=== PATIENT | female | born 1990 | race Caucasian/White ===

== ENCOUNTER → 2019-01-31 | Outpatient (CLI) | payer OTHER ==
--- NOTE | 2019-02-01 06:07 | XR ---
EXAMINATION TYPE: XR chest 2V DATE OF EXAM: 01/31/2019 COMPARISON: None HISTORY: 28-year-old female with cough TECHNIQUE: Frontal and lateral views FINDINGS: The cardiomediastinal silhouette, aorta, and pulmonary vasculature are within normal limits. Lungs an d pleural spaces are clear. IMPRESSION: No acute cardiopulmonary process.
== END | disposition home or self-care (01) ==
LOC: RADXRMAIN 16:41
PROVIDERS: ATTEND Family Medicine
DX: R05 Cough (principal)
CPT/HCPCS: 71046

== ENCOUNTER → 2019-07-12 | Outpatient (CLI) | payer OTHER ==
--- NOTE | 2019-07-12 13:09 | US ---
EXAMINATION TYPE: US pelvic complete DATE OF EXAM: 07/12/2019 COMPARISON: NONE CLINICAL HISTORY: R10.11 RIGHT LOWER QUADRANT PAIN. RLQ pain. Patient did not want the transvaginal ultrasound. TECHNIQUE: Transabdominal (TA). Transabdominal sonographic images of the pelvis were acquired. Date of LMP: 06/18/2019, EXAM MEASUREMENTS: Uterus: 8.6 x 4.8 x 3.6 cm Endometrial Stripe: 0.2 cm Right Ovary: 2.7 x 1.4 x 1.2 cm Left Ovary: 5.9 x 4.3 x 3.6 cm 1. Uterus: Anteverted wnl 2. Endometrium: wnl 3. Right Ovary: wnl 4. Left Ovary: simple cystic appearing lesion visualized = 5.1 x 3.8 x 3.4 cm Spectral, color and waveform doppler imaging shows good arterial and venous flow within the left ov felix; there is no evidence for ovarian torsion. 5. Bilateral Adnexa: neg 6. Posterior cul-de-sac: no free fluid IMPRESSION: There is a simple appearing left 5.1 cm ovarian cyst however the patient declined transva ginal imaging for further delineation. The size of this cyst does increased risk for torsion however no sonographic evidence of left ovarian torsion is seen at this time. Follow-up in 3 menstrual cycles is recommended to ensure resolution.
--- NOTE | 2019-07-12 13:10 | US ---
EXAMINATION TYPE: US abdomen complete DATE OF EXAM: 07/12/2019 COMPARISON: NONE CLINICAL HISTORY: R10.11 right lower quadrant pain. No surgeries. NPO. Generalized pain. EXAM MEASUREMENTS: Liver Length: 14.5 cm Gallbladder Wall: 0.2 cm CBD: 0.4 cm Spleen: 10.0 cm Right Kidney: 10.8 x 5.6 x 3.9 cm Left Kidney: 11.1 x 5.1 x 5.7 cm Pancreas: wnl Liver: wnl Gallbladder: wnl Evidence for sonographic Scott's sign: neg CBD: wnl Spleen: wnl Right Kidney: wnl Left Kidney: wnl Upper IVC: wnl Abd Aorta: No AAA visualized The liver is homogenous. The intrahepatic portion of the IVC and proximal abdominal aorta are within normal limits. There is no evidence of cholelithiasis. Common bile duct is unremarkable. The visu alized portions of the pancreas are homogenous. The spleen is unremarkable. Kidneys are symmetric a nd free of hydronephrosis. No renal lesions are seen. IMPRESSION: Unremarkable abdominal ultrasound. No sonographic evidence of cholelithiasis nor acute ch olecystitis.
== END | disposition home or self-care (01) ==
LOC: RADUSWWP 10:42
PROVIDERS: ATTEND Family Medicine
DX: N83.292 Other ovarian cyst, left side (principal); R10.31 Right lower quadrant pain
CPT/HCPCS: 76700; 76856

== ENCOUNTER → 2021-01-12 | Outpatient (CLI) | payer OTHER ==
--- NOTE | 2021-01-12 13:21 | XR ---
EXAMINATION TYPE: XR shoulder complete LT DATE OF EXAM: 01/12/2021 COMPARISON: NONE HISTORY: Pain TECHNIQUE: Shoulder examined in 3 views FINDINGS: The humeral head articulates with the glenoid. The acromio-clavicular junction is normal. No acute fractures or dislocations are evident. A follow up study can be performed 7-10 days from acute trauma for continued pain. IMPRESSION: 1. Normal three-view left Shoulder
--- NOTE | 2021-01-12 15:58 | US ---
EXAMINATION TYPE: US abdomen limited DATE OF EXAM: 01/12/2021 COMPARISON: NONE CLINICAL HISTORY: 30-year-old female R10.11 right upper quadrant pain. TECHNIQUE: Multiple sonographic images of the right upper quadrant are obtained. FINDINGS: EXAM MEASUREMENTS: Liver Length: 16.3 cm Gallbladder Wall: .3 cm CBD: .4 cm Right Kidney: 11.5 x 3.9 x 5.3 cm Pancreas: wnl Liver: wnl Gallbladder: wnl Evidence for sonographic Scott's sign: No CBD: wnl Right Kidney: No hydronephrosis. IMPRESSION: Unremarkable sonographic examination of the right upper quadrant.
== END | disposition home or self-care (01) ==
LOC: RADUSWWP 09:27
PROVIDERS: ATTEND Family Medicine
DX: R10.11 Right upper quadrant pain (principal); M75.42 Impingement syndrome of left shoulder
CPT/HCPCS: 76705

== ENCOUNTER 2021-09-29 08:18 | Emergency (ER) | payer OTHER ==
[2021-09-29 08:22] VITALS: BP 110/72; PULSE 85; RESP 20; TEMP 98
[2021-09-29] MEDS ORDERED: methylPREDNISolone SOD SUCCI 125 MG/2 ML VIAL IM ONE (09:09)
[2021-09-29] MEDS ORDERED: KETOROLAC 15 MG/ML 1 ML VIAL IM STA (09:09)
[2021-09-29] MEDS ORDERED: ACET/COD 300 MG/30 MG STARTER PACK 6 TAB BTL PO STA (09:11)
--- NOTE | 2021-09-29 09:12 | ED ---
General Adult HPI - General Chief complaint: Back Pain/Injury Stated complaint: spine/back pain Time Seen by Provider: 09/29/21 08:27 Source: patient, RN notes reviewed Mode of arrival: wheelchair Limitations: no limitations - History of Present Illness Initial comments: 30-year-old female with a past medical history of back pain presents to the emergency department for acute back pain. Patient states for 15 years she has had back pain on and off. States that it is usually at of 4 but now is at a 9. Patient states that the pain radiates down the right leg. Patient has a history of degenerative disc disease and slipped disks. She denies any bladder or bowel changes, saddle anesthesia, or weakness in the legs. Denies fevers. States that movement worsens the pain.denies any chance of Patient has no other complaints at this time including shortness of breath, chest pain, abdominal pain, nausea or vomiting, headache, or visual changes. - Related Data Previous Rx's Medication Instructions Recorded predniSONE 50 mg PO DAILY #4 tablet 09/29/21 Allergies Allergy/AdvReac Type Severity Reaction Status Date / Time Penicillins Allergy Rash/Hives Verified 09/29/21 08:22 Review of Systems ROS Statement: Those systems with pertinent positive or pertinent negative responses have been documented in the HPI. ROS Other: All systems not noted in ROS Statement are negative. Past Medical History Additional Past Medical History / Comment(s): Back pain History of Any Multi-Drug Resistant Organisms: None Reported Past Surgical History: Section Past Psychological History: No Psychological Hx Reported Smoking Status: Never smoker Past Alcohol Use History: Occasional Past Drug Use History: Marijuana General Exam Limitations: no limitations General appearance: alert, in no apparent distress Head exam: Present: atraumatic, normocephalic, normal inspection Eye exam: Present: normal appearance, PERRL, EOMI. Absent: scleral icterus, conjunctival injection, periorbital swelling ENT exam: Present: normal exam, mucous membranes moist Neck exam: Present: normal inspection, full ROM. Absent: tenderness, meningismus, lymphadenopathy Respiratory exam: Present: normal lung sounds bilaterally. Absent: respiratory distress, wheezes, rales, rhonchi, stridor Cardiovascular Exam: Present: regular rate, normal rhythm, normal heart sounds. Absent: systolic murmur, diastolic murmur, rubs, gallop, clicks GI/Abdominal exam: Present: soft, normal bowel sounds. Absent: distended, tenderness, guarding, rebound, rigid Extremities exam: Present: normal capillary refill (Capillary refill less than 2 seconds bilateral lower extremities.), other (strength 5 out of 5 bilateral lower extremities) Back exam: Present: other (She is able to ambulate and stand. Pain with flexion of the lumbar spine.). Absent: full ROM Course Vital Signs 09/29/21 08:19 Temperature 98 F Pulse Rate 85 Respiratory 20 Rate Blood Pressure 110/72 O2 Sat by Pulse 99 Oximetry Medical Decision Making - Medical Decision Making No red flag symptoms. This is acute on chronic back pain. We will treat patient symptomatically and refer her to orthopedics for an MRI. She will also be put on a steroid burst. She will return here for any worsening symptoms. Disposition Clinical Impression: Mechanical back pain, Lumbar radiculopathy Disposition: HOME SELF-CARE Condition: Good Instructions (If sedation given, give patient instructions): Acute Low Back Pain (ED) Additional Instructions: take steroid as directed. Do not take Motrin on the days to take steroid. Take Tylenol 3 instead. Follow-up with orthopedics. Return to the emergency room for any worsening symptoms. Prescriptions: predniSONE 50 mg PO DAILY #4 tablet Is patient prescribed a controlled substance at d/c from ED?: No Referrals: Ana Cristina Mims MD [Primary Care Provider] - 1-2 days Reji Cook DO [Doctor of Osteopathic Medicine] - 1-2 days Time of Disposition: 09:11
== END 2021-09-29 09:38 | disposition home or self-care (01) ==
LOC: EC 08:18
DX: M54.16 Radiculopathy, lumbar region (principal); F12.90 Cannabis use, unspecified, uncomplicated; Z88.0 Allergy status to penicillin
CPT/HCPCS: 99283; 96372 ×2; J2930; J1885

== ENCOUNTER 2021-10-05 18:57 | Emergency (ER) | payer OTHER ==
[2021-10-05 20:34] VITALS: TEMP 98.7
[2021-10-05] MEDS ORDERED: MECLIZINE 12.5 MG TAB PO STA (23:48)
[2021-10-05] MEDS ORDERED: SODIUM CHLORIDE 0.9% 1,000 ML IV STA (23:48)
[2021-10-06 00:29] LABS: Basophils # (A) 0.1 k/uL (0-0.2); Basophils % (A) 1 %; Eosinophils # (A) 0.4 k/uL (0-0.7); Eosinophils % (A) 4 %; HCT 39.8 % (34.0-46.0); HGB 13.4 gm/dL (11.4-16.0); Lymphocytes # (A) 4.3 k/uL (1.0-4.8); Lymphocytes % (A) 39 %; MCH 29.5 pg (25.0-35.0); MCHC 33.7 g/dL (31.0-37.0); MCV 87.6 fL (80.0-100.0); Mean Platelet Volume 7.9; Monocytes # (A) 0.5 k/uL (0-1.0); Monocytes % (A) 4 %; Neutrophils # (A) 5.7 k/uL (1.3-7.7); Neutrophils % (A) 51 %; Platelet Count 346 k/uL (150-450); RBC 4.55 m/uL (3.80-5.40); RDW 11.9 % (11.5-15.5); WBC 11.2 k/uL (3.8-10.6)
[2021-10-06 00:31] LABS: Appearance,Urine Clear (Clear); Bilirubin,Urine Negative (Negative); Blood,Urine Negative (Negative); Color,Urine Light Yellow; Glucose,Urine (UA) Negative (Negative); Ketones,Urine Negative (Negative); Leukocyte Esterase,Urine Negative (Negative); Nitrite,Urine Negative (Negative); PH, Urine 5.5 (5.0-8.0); Protein,Urine Negative (Negative); Specific Gravity,Urine 1.017 (1.001-1.035); Urobilinogen,Urine <2.0 mg/dL (<2.0)
[2021-10-06 00:41] LABS: ALT 11 U/L (4-34); AST 16 U/L (14-36); African American GFR (CKD) >90 (>60 ml/min/1.73 sqM); Albumin 3.7 g/dL (3.5-5.0); Alkaline Phosphatase 63 U/L (38-126); Anion Gap 8 mmol/L; Blood Urea Nitrogen 17 mg/dL (7-17); Calcium 9.6 mg/dL (8.4-10.2); Carbon Dioxide 28 mmol/L (22-30); Chloride 99 mmol/L (98-107); Glucose 91 mg/dL (74-99); Non-African American GFR(CKD) >90 (>60 ml/min/1.73 sqM); Potassium 3.9 mmol/L (3.5-5.1); Sodium 135 mmol/L (137-145); Total Bilirubin 0.7 mg/dL (0.2-1.3); Total Protein 6.8 g/dL (6.3-8.2)
--- NOTE | 2021-10-06 00:45 | XR ---
EXAMINATION TYPE: XR chest 2V DATE OF EXAM: 10/05/2021 COMPARISON: 01/31/2019 HISTORY: Dizziness TECHNIQUE: FINDINGS: Heart and mediastinum are normal. Lungs are clear. Diaphragm is normal. Bony thorax appears normal. IMPRESSION: Normal chest. No change.
--- NOTE | 2021-10-06 01:39 | ED ---
General Adult HPI - General Chief complaint: Recheck/Abnormal Lab/Rx Stated complaint: Swollen Lymph Nodes/Dizziness Time Seen by Provider: 10/05/21 23:25 Source: patient, family, RN notes reviewed Mode of arrival: ambulatory Limitations: no limitations - History of Present Illness Initial comments: 30-year-old female with a past medical history of back pain presents to the emergency room for dizziness. Patient states she just has not felt well over the past couple days. States she has been more fatigued. Patient states she has been lightheaded and dizzy. States sometimes the dizziness makes her feel drunk. Patient also has a lump in her left armpit that is concerning to her. Patient did have some severe back pain however that has improved significantly. This was a week ago. She has not had fevers. She states her taste is also different. States that water taste different and pop just taste carbonated. States this happened the last time she had Covid. States all these symptoms happen the last time she had Covid.Patient has no other complaints at this time including shortness of breath, chest pain, abdominal pain, nausea or vomiting, headache, or visual changes. - Related Data Previous Rx's Medication Instructions Recorded predniSONE 50 mg PO DAILY #4 tablet 09/29/21 Meclizine [Antivert] 25 mg PO TID #20 tab 10/06/21 Ondansetron [Zofran ODT] 4 mg PO Q8HR PRN #15 tab 10/06/21 Sulfamethox-Tmp 800-160Mg [Bactrim 1 tab PO Q12HR #14 tab 10/06/21 DS 800-160 mg] Allergies Allergy/AdvReac Type Severity Reaction Status Date / Time codeine Allergy Nausea & Verified 10/05/21 20:34 Vomiting Penicillins Allergy Rash/Hives Verified 09/29/21 08:22 Review of Systems ROS Statement: Those systems with pertinent positive or pertinent negative responses have been documented in the HPI. ROS Other: All systems not noted in ROS Statement are negative. Past Medical History Additional Past Medical History / Comment(s): Back pain History of Any Multi-Drug Resistant Organisms: None Reported Past Surgical History: Section Past Psychological History: No Psychological Hx Reported Smoking Status: Never smoker Past Alcohol Use History: Occasional Past Drug Use History: Marijuana General Exam Limitations: no limitations General appearance: alert, in no apparent distress Head exam: Present: atraumatic Eye exam: Present: normal appearance, PERRL, EOMI. Absent: scleral icterus, conjunctival injection ENT exam: Present: normal exam, mucous membranes moist Neck exam: Present: normal inspection, full ROM. Absent: tenderness Respiratory exam: Present: normal lung sounds bilaterally. Absent: respiratory distress, wheezes Cardiovascular Exam: Present: regular rate, normal rhythm, normal heart sounds GI/Abdominal exam: Present: soft, normal bowel sounds. Absent: distended, tenderness Extremities exam: Present: other (erythematous nodule in L axilla, indurated.) Neurological exam: Present: alert, oriented X3, normal gait Course Vital Signs 10/05/21 10/05/21 20:29 23:00 Temperature 98.7 F Pulse Rate 83 78 Respiratory 22 16 Rate Blood Pressure 114/72 118/77 O2 Sat by Pulse 100 97 Oximetry Medical Decision Making - Medical Decision Making Vitals are stable. Patient is well appearing. Physical exam did reveal an erythematous nodule in the left axilla. It is indurated, not fluctuant. Cannot be drained at this time. CBC shows mild cytosis. Patient just finished a course of steroids and this is likely reactive. CMP unremarkable. Urinalysis is negative. Coronavirus negative. X-ray shows a normal chest, no change. Patient was given fluids and Antivert. She does not have any ataxia. She only has mild symptoms at this time. I'll as an antibiotic for possible developing abscess in the left axilla. She will do warm compresses. She will follow up with primary care. Will return for any worsening symptoms. - Lab Data Result diagrams: 10/06/21 00:13 10/06/21 00:13 Lab Results 10/05/21 10/06/21 10/06/21 Range/Units 20:35 00:13 00:13 WBC 11.2 H (3.8-10.6) k/uL RBC 4.55 (3.80-5.40) m/uL Hgb 13.4 (11.4-16.0) gm/dL Hct 39.8 (34.0-46.0) % MCV 87.6 (80.0-100.0) fL MCH 29.5 (25.0-35.0) pg MCHC 33.7 (31.0-37.0) g/dL RDW 11.9 (11.5-15.5) % Plt Count 346 (150-450) k/uL MPV 7.9 Neutrophils % 51 % Lymphocytes % 39 % Monocytes % 4 % Eosinophils % 4 % Basophils % 1 % Neutrophils # 5.7 (1.3-7.7) k/uL Lymphocytes # 4.3 (1.0-4.8) k/uL Monocytes # 0.5 (0-1.0) k/uL Eosinophils # 0.4 (0-0.7) k/uL Basophils # 0.1 (0-0.2) k/uL Sodium (137-145) mmol/L Potassium (3.5-5.1) mmol/L Chloride (98-107) mmol/L Carbon Dioxide (22-30) mmol/L Anion Gap mmol/L BUN (7-17) mg/dL Creatinine (0.52-1.04) mg/dL Est GFR (CKD-EPI)AfAm (>60 ml/min/1.73 sqM) Est GFR (CKD-EPI)NonAf (>60 ml/min/1.73 sqM) Glucose (74-99) mg/dL Calcium (8.4-10.2) mg/dL Total Bilirubin (0.2-1.3) mg/dL AST (14-36) U/L ALT (4-34) U/L Alkaline Phosphatase (38-126) U/L Total Protein (6.3-8.2) g/dL Albumin (3.5-5.0) g/dL Urine Color Light Yellow Urine Appearance Clear (Clear) Urine pH 5.5 (5.0-8.0) Ur Specific [place] 1.017 (1.001-1.035) Urine Protein Negative (Negative) Urine Glucose (UA) Negative (Negative) Urine Ketones Negative (Negative) Urine Blood Negative (Negative) Urine Nitrite Negative (Negative) Urine Bilirubin Negative (Negative) Urine Urobilinogen <2.0 (<2.0) mg/dL Ur Leukocyte Esterase Negative (Negative) Urine HCG, Qual (Not Detectd) Coronavirus (PCR) Not Detected (Not Detectd) 10/06/21 10/06/21 Range/Units 00:13 00:13 WBC (3.8-10.6) k/uL RBC (3.80-5.40) m/uL Hgb (11.4-16.0) gm/dL Hct (34.0-46.0) % MCV (80.0-100.0) fL MCH (25.0-35.0) pg MCHC (31.0-37.0) g/dL RDW (11.5-15.5) % Plt Count (150-450) k/uL MPV Neutrophils % % Lymphocytes % % Monocytes % % Eosinophils % % Basophils % % Neutrophils # (1.3-7.7) k/uL Lymphocytes # (1.0-4.8) k/uL Monocytes # (0-1.0) k/uL Eosinophils # (0-0.7) k/uL Basophils # (0-0.2) k/uL Sodium 135 L (137-145) mmol/L Potassium 3.9 (3.5-5.1) mmol/L Chloride 99 (98-107) mmol/L Carbon Dioxide 28 (22-30) mmol/L Anion Gap 8 mmol/L BUN 17 (7-17) mg/dL Creatinine 0.61 (0.52-1.04) mg/dL Est GFR (CKD-EPI)AfAm >90 (>60 ml/min/1.73 sqM) Est GFR (CKD-EPI)NonAf >90 (>60 ml/min/1.73 sqM) Glucose 91 (74-99) mg/dL Calcium 9.6 (8.4-10.2) mg/dL Total Bilirubin 0.7 (0.2-1.3) mg/dL AST 16 (14-36) U/L ALT 11 (4-34) U/L Alkaline Phosphatase 63 (38-126) U/L Total Protein 6.8 (6.3-8.2) g/dL Albumin 3.7 (3.5-5.0) g/dL Urine Color Urine Appearance (Clear) Urine pH (5.0-8.0) Ur Specific [place] (1.001-1.035) Urine Protein (Negative) Urine Glucose (UA) (Negative) Urine Ketones (Negative) Urine Blood (Negative) Urine Nitrite (Negative) Urine Bilirubin (Negative) Urine Urobilinogen (<2.0) mg/dL Ur Leukocyte Esterase (Negative) Urine HCG, Qual Not Detected (Not Detectd) Coronavirus (PCR) (Not Detectd) Disposition Clinical Impression: Dizziness, Abscess Disposition: HOME SELF-CARE Condition: Good Instructions (If sedation given, give patient instructions): Abscess (ED) Additional Instructions: Take medications as directed. Follow-up with your doctor. Return to the emergency room for any worsening symptoms. Prescriptions: Meclizine [Antivert] 25 mg PO TID #20 tab Sulfamethox-Tmp 800-160Mg [Bactrim DS 800-160 mg] 1 tab PO Q12HR #14 tab Ondansetron [Zofran ODT] 4 mg PO Q8HR PRN #15 tab PRN Reason: Nausea Is patient prescribed a controlled substance at d/c from ED?: No Referrals: Isauro Trotter MD [REFERRING] - 1-2 days Time of Disposition: 01:38
[2021-10-06 01:45] VITALS: BP 121/55; PULSE 77; RESP 18
== END 2021-10-06 01:45 | disposition home or self-care (01) ==
LOC: EC 18:57
DX: R42 Dizziness and giddiness (principal); L02.412 Cutaneous abscess of left axilla; F12.90 Cannabis use, unspecified, uncomplicated; Z20.822 Contact with and (suspected) exposure to COVID-19; Z88.0 Allergy status to penicillin; Z88.5 Allergy status to narcotic agent
CPT/HCPCS: 36415; 71046; 80053; 81003; 81025; 85025; 87635; 99284

== ENCOUNTER → 2022-03-23 | Outpatient (CLI) | payer OTHER ==
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
== END | disposition home or self-care (01) ==
LOC: RADXRWHC 09:09
PROVIDERS: ATTEND Nurse Practitioner Family
DX: M51.36 Other intervertebral disc degeneration, lumbar region (principal)
CPT/HCPCS: 72100

== ENCOUNTER 2022-07-12 11:21 | Emergency (ER) | payer OTHER ==
[2022-07-12] MEDS ORDERED: SODIUM CHLORIDE 0.9% 1,000 ML IV STA (11:53)
[2022-07-12 12:10] LABS: Basophils # (A) 0.1 k/uL (0-0.2); Basophils % (A) 0 %; Eosinophils # (A) 0.4 k/uL (0-0.7); Eosinophils % (A) 3 %; HCT 42.3 % (34.0-46.0); HGB 14.1 gm/dL (11.4-16.0); Lymphocytes # (A) 3.4 k/uL (1.0-4.8); Lymphocytes % (A) 25 %; MCH 29.3 pg (25.0-35.0); MCHC 33.4 g/dL (31.0-37.0); MCV 87.6 fL (80.0-100.0); Monocytes # (A) 0.5 k/uL (0-1.0); Monocytes % (A) 4 %; Neutrophils % (A) 67 %; Platelet Count 338 k/uL (150-450); RBC 4.82 m/uL (3.80-5.40); RDW 12.6 % (11.5-15.5); WBC 13.6 k/uL (3.8-10.6)
[2022-07-12 12:23] VITALS: RESP 18
[2022-07-12 12:23] LABS: ALT 30 U/L (4-34); AST 22 U/L (14-36); African American GFR (CKD) >90 (>60 ml/min/1.73 sqM); Albumin 4.3 g/dL (3.5-5.0); Alkaline Phosphatase 83 U/L (38-126); Anion Gap 12 mmol/L; Blood Urea Nitrogen 9 mg/dL (7-17); Calcium 9.7 mg/dL (8.4-10.2); Carbon Dioxide 23 mmol/L (22-30); Chloride 102 mmol/L (98-107); Glucose 100 mg/dL (74-99); Magnesium 1.8 mg/dL (1.6-2.3); Non-African American GFR(CKD) >90 (>60 ml/min/1.73 sqM); Phosphorus 3.3 mg/dL (2.5-4.5); Potassium 4.2 mmol/L (3.5-5.1); Sodium 137 mmol/L (137-145); Total Bilirubin 0.6 mg/dL (0.2-1.3); Total Protein 7.2 g/dL (6.3-8.2)
[2022-07-12 12:33] LABS: Appearance,Urine Cloudy (Clear); Bacteria,Urine Rare /hpf; Bilirubin,Urine Negative (Negative); Blood,Urine Negative (Negative); Color,Urine Yellow; Glucose,Urine (UA) Negative (Negative); Ketones,Urine Negative (Negative); Leukocyte Esterase,Urine Negative (Negative); Mucus,Urine Moderate /hpf; Nitrite,Urine Negative (Negative); Protein,Urine Trace (Negative); RBC,Urine 3 /hpf (0-5); Specific Gravity,Urine 1.023 (1.001-1.035); Squamous Epithelial Cell,Urine 2 /hpf (0-4); Urobilinogen,Urine <2.0 mg/dL (<2.0); WBC,Urine 2 /hpf (0-5)
[2022-07-12 12:36] LABS: INR 0.9 (<1.2); Partial Thromboplastin Time 24.9 sec (22.0-30.0); Prothrombin Time 9.7 sec (9.0-12.0)
--- NOTE | 2022-07-12 13:11 | XR ---
EXAMINATION TYPE: XR chest 2V DATE OF EXAM: 07/12/2022 1:04 PM COMPARISON: Chest radiographs from 10/06/2021. TECHNIQUE: XR chest 2V Frontal and lateral views of the chest. CLINICAL INDICATION:Female, 31 years old with history of palpitations; FINDINGS: Lungs/Pleura: There is no evidence of pleural effusion, focal consolidation, or pneumothorax. Pulmonary vascularity: Unremarkable. Heart/mediastinum: Cardiomediastinal silhouette is unremarkable. Musculoskeletal: No acute osseous pathology. IMPRESSION: No acute cardiopulmonary disease/process.
--- NOTE | 2022-07-12 13:49 | ED ---
General Adult HPI - General Chief complaint: Recheck/Abnormal Lab/Rx Stated complaint: Heart racing, Sweating Time Seen by Provider: 07/12/22 11:41 Source: patient Mode of arrival: ambulatory Limitations: no limitations - History of Present Illness Initial comments: Patient is a 31-year-old female presenting with chief complaint of palpitations. Patient states that for the last 4 days she has felt a sore heart is racing. She also admits to paresthesias in the bilateral hands and feet. Patient states she was recently on dexamethasone 4 mg twice a day for back pain, she recently discontinued this when she started experiencing symptoms. Patient also admits to sweating and fatigue. She denies any chest pain. No abdominal pain, nausea, vomiting. No dysuria, hematuria, urgency, frequency. No back pain, fever, chills. - Related Data Home Medications Medication Instructions Recorded Confirmed Docusate [Colace] 100 mg PO DAILY PRN 07/12/22 07/12/22 Meloxicam [Mobic] 7.5 mg PO DAILY 07/12/22 07/12/22 Phentermine HCl [Adipex-P] 37.5 mg PO DAILY 07/12/22 07/12/22 Psyllium Husk (with Sugar) 12 gm PO DAILY 07/12/22 07/12/22 [Metamucil Powder] Previous Rx's Medication Instructions Recorded methylPREDNISolone Dose Pack 4 mg PO DIRECTED #1 packet 07/12/22 [Medrol Dose Pack] Allergies Allergy/AdvReac Type Severity Reaction Status Date / Time codeine Allergy Nausea & Verified 07/12/22 12:07 Vomiting Penicillins Allergy Nausea Verified 07/12/22 12:07 Review of Systems ROS Statement: Those systems with pertinent positive or pertinent negative responses have been documented in the HPI. ROS Other: All systems not noted in ROS Statement are negative. Past Medical History Additional Past Medical History / Comment(s): Back pain History of Any Multi-Drug Resistant Organisms: None Reported Past Surgical History: Section Past Psychological History: No Psychological Hx Reported Smoking Status: Never smoker Past Alcohol Use History: Occasional Past Drug Use History: Marijuana General Exam Limitations: no limitations General appearance: alert, in no apparent distress Head exam: Present: atraumatic, normocephalic, normal inspection Eye exam: Present: normal appearance, EOMI. Absent: scleral icterus, periorbital swelling Neck exam: Present: normal inspection Respiratory exam: Present: normal lung sounds bilaterally. Absent: respiratory distress, wheezes, rales, rhonchi, stridor Cardiovascular Exam: Present: regular rate GI/Abdominal exam: Present: soft. Absent: distended, tenderness, guarding, rebound, rigid Extremities exam: Present: normal inspection, full ROM Neurological exam: Present: alert, oriented X3, CN II-XII intact Psychiatric exam: Present: normal affect, normal mood Skin exam: Present: warm, dry, intact, normal color. Absent: rash Course Vital Signs 07/12/22 07/12/22 07/12/22 11:26 12:00 12:23 Temperature 97.6 F 98.0 F Pulse Rate 119 H 98 Respiratory 20 20 18 Rate Blood Pressure 113/75 150/93 O2 Sat by Pulse 99 100 Oximetry 07/12/22 14:38 Temperature 97.9 F Pulse Rate 93 Respiratory 18 Rate Blood Pressure 114/57 O2 Sat by Pulse 98 Oximetry EKG Findings - EKG Comments: EKG Findings:: Sinus rhythm rate of 90. TN interval 152. QRS duration 70 symptoms. QT/QTC 331/37. Normal axis. No ischemic ST or T-wave changes. Medical Decision Making - Medical Decision Making Patient is a 31-year-old female presenting with chief complaint of palpitations and paresthesias to the bilateral hands and feet. Patient states hasn't been ongoing for the last 4 days. Of note she recently discontinued a course of dexamethasone 4 mg twice a day for her back pain. On examination heart and lungs are clear to auscultation, no abdominal pain, patient is complaining of numbness and tingling of the hands and feet. Lab work shows WBC count 13.6, likely due to recent steroid use. D-dimer and troponin are WNL. Electrolytes are WNL. Urine shows no sign of infectious process, we'll send for culture. Patient is negative for coronavirus and influenza. EKG shows sinus rhythm and no ischemic changes. Chest x-ray shows no acute cardiopulmonary disease. Patient appears stable for discharge with outpatient follow-up at this time. Follow-up with PCP and cardiology for Holter monitor. Report back to ER if any new or worsening symptoms. Discussed return parameters and answered all questions. Patient conveyed verbal understanding and agreed to the plan. I discussed this case with my attending Dr. Rosenberg. - Lab Data Result diagrams: 07/12/22 11:55 07/12/22 11:55 Lab Results 07/12/22 07/12/22 07/12/22 Range/Units 11:55 11:55 11:55 WBC 13.6 H (3.8-10.6) k/uL RBC 4.82 (3.80-5.40) m/uL Hgb 14.1 (11.4-16.0) gm/dL Hct 42.3 (34.0-46.0) % MCV 87.6 (80.0-100.0) fL MCH 29.3 (25.0-35.0) pg MCHC 33.4 (31.0-37.0) g/dL RDW 12.6 (11.5-15.5) % Plt Count 338 (150-450) k/uL MPV 8.0 Neutrophils % 67 % Lymphocytes % 25 % Monocytes % 4 % Eosinophils % 3 % Basophils % 0 % Neutrophils # 9.0 H (1.3-7.7) k/uL Lymphocytes # 3.4 (1.0-4.8) k/uL Monocytes # 0.5 (0-1.0) k/uL Eosinophils # 0.4 (0-0.7) k/uL Basophils # 0.1 (0-0.2) k/uL PT 9.7 (9.0-12.0) sec INR 0.9 (<1.2) APTT 24.9 (22.0-30.0) sec D-Dimer <0.17 (<0.60) mg/L FEU Sodium (137-145) mmol/L Potassium (3.5-5.1) mmol/L Chloride (98-107) mmol/L Carbon Dioxide (22-30) mmol/L Anion Gap mmol/L BUN (7-17) mg/dL Creatinine (0.52-1.04) mg/dL Est GFR (CKD-EPI)AfAm (>60 ml/min/1.73 sqM) Est GFR (CKD-EPI)NonAf (>60 ml/min/1.73 sqM) Glucose (74-99) mg/dL Calcium (8.4-10.2) mg/dL Phosphorus (2.5-4.5) mg/dL Magnesium (1.6-2.3) mg/dL Total Bilirubin (0.2-1.3) mg/dL AST (14-36) U/L ALT (4-34) U/L Alkaline Phosphatase (38-126) U/L Troponin I (0.000-0.034) ng/mL Total Protein (6.3-8.2) g/dL Albumin (3.5-5.0) g/dL Cortisol ug/dL Urine Color Yellow Urine Appearance Cloudy H (Clear) Urine pH 6.0 (5.0-8.0) Ur Specific [place] 1.023 (1.001-1.035) Urine Protein Trace H (Negative) Urine Glucose (UA) Negative (Negative) Urine Ketones Negative (Negative) Urine Blood Negative (Negative) Urine Nitrite Negative (Negative) Urine Bilirubin Negative (Negative) Urine Urobilinogen <2.0 (<2.0) mg/dL Ur Leukocyte Esterase Negative (Negative) Urine RBC 3 (0-5) /hpf Urine WBC 2 (0-5) /hpf Ur Squamous Epith Cells 2 (0-4) /hpf Urine Bacteria Rare H (None) /hpf Urine Mucus Moderate H (None) /hpf Urine HCG, Qual (Not Detectd) Coronavirus (PCR) (Not Detectd) Influenza Type A RNA (Not Detectd) Influenza Type B (PCR) (Not Detectd) 07/12/22 07/12/22 07/12/22 Range/Units 11:55 11:55 11:55 WBC (3.8-10.6) k/uL RBC (3.80-5.40) m/uL Hgb (11.4-16.0) gm/dL Hct (34.0-46.0) % MCV (80.0-100.0) fL MCH (25.0-35.0) pg MCHC (31.0-37.0) g/dL RDW (11.5-15.5) % Plt Count (150-450) k/uL MPV Neutrophils % % Lymphocytes % % Monocytes % % Eosinophils % % Basophils % % Neutrophils # (1.3-7.7) k/uL Lymphocytes # (1.0-4.8) k/uL Monocytes # (0-1.0) k/uL Eosinophils # (0-0.7) k/uL Basophils # (0-0.2) k/uL PT (9.0-12.0) sec INR (<1.2) APTT (22.0-30.0) sec D-Dimer (<0.60) mg/L FEU Sodium 137 (137-145) mmol/L Potassium 4.2 (3.5-5.1) mmol/L Chloride 102 (98-107) mmol/L Carbon Dioxide 23 (22-30) mmol/L Anion Gap 12 mmol/L BUN 9 (7-17) mg/dL Creatinine 0.73 (0.52-1.04) mg/dL Est GFR (CKD-EPI)AfAm >90 (>60 ml/min/1.73 sqM) Est GFR (CKD-EPI)NonAf >90 (>60 ml/min/1.73 sqM) Glucose 100 H (74-99) mg/dL Calcium 9.7 (8.4-10.2) mg/dL Phosphorus 3.3 (2.5-4.5) mg/dL Magnesium 1.8 (1.6-2.3) mg/dL Total Bilirubin 0.6 (0.2-1.3) mg/dL AST 22 (14-36) U/L ALT 30 (4-34) U/L Alkaline Phosphatase 83 (38-126) U/L Troponin I <0.012 (0.000-0.034) ng/mL Total Protein 7.2 (6.3-8.2) g/dL Albumin 4.3 (3.5-5.0) g/dL Cortisol 8 ug/dL Urine Color Urine Appearance (Clear) Urine pH (5.0-8.0) Ur Specific [place] (1.001-1.035) Urine Protein (Negative) Urine Glucose (UA) (Negative) Urine Ketones (Negative) Urine Blood (Negative) Urine Nitrite (Negative) Urine Bilirubin (Negative) Urine Urobilinogen (<2.0) mg/dL Ur Leukocyte Esterase (Negative) Urine RBC (0-5) /hpf Urine WBC (0-5) /hpf Ur Squamous Epith Cells (0-4) /hpf Urine Bacteria (None) /hpf Urine Mucus (None) /hpf Urine HCG, Qual Not Detected (Not Detectd) Coronavirus (PCR) (Not Detectd) Influenza Type A RNA (Not Detectd) Influenza Type B (PCR) (Not Detectd) 07/12/22 07/12/22 Range/Units 12:26 12:26 WBC (3.8-10.6) k/uL RBC (3.80-5.40) m/uL Hgb (11.4-16.0) gm/dL Hct (34.0-46.0) % MCV (80.0-100.0) fL MCH (25.0-35.0) pg MCHC (31.0-37.0) g/dL RDW (11.5-15.5) % Plt Count (150-450) k/uL MPV Neutrophils % % Lymphocytes % % Monocytes % % Eosinophils % % Basophils % % Neutrophils # (1.3-7.7) k/uL Lymphocytes # (1.0-4.8) k/uL Monocytes # (0-1.0) k/uL Eosinophils # (0-0.7) k/uL Basophils # (0-0.2) k/uL PT (9.0-12.0) sec INR (<1.2) APTT (22.0-30.0) sec D-Dimer (<0.60) mg/L FEU Sodium (137-145) mmol/L Potassium (3.5-5.1) mmol/L Chloride (98-107) mmol/L Carbon Dioxide (22-30) mmol/L Anion Gap mmol/L BUN (7-17) mg/dL Creatinine (0.52-1.04) mg/dL Est GFR (CKD-EPI)AfAm (>60 ml/min/1.73 sqM) Est GFR (CKD-EPI)NonAf (>60 ml/min/1.73 sqM) Glucose (74-99) mg/dL Calcium (8.4-10.2) mg/dL Phosphorus (2.5-4.5) mg/dL Magnesium (1.6-2.3) mg/dL Total Bilirubin (0.2-1.3) mg/dL AST (14-36) U/L ALT (4-34) U/L Alkaline Phosphatase (38-126) U/L Troponin I (0.000-0.034) ng/mL Total Protein (6.3-8.2) g/dL Albumin (3.5-5.0) g/dL Cortisol ug/dL Urine Color Urine Appearance (Clear) Urine pH (5.0-8.0) Ur Specific [place] (1.001-1.035) Urine Protein (Negative) Urine Glucose (UA) (Negative) Urine Ketones (Negative) Urine Blood (Negative) Urine Nitrite (Negative) Urine Bilirubin (Negative) Urine Urobilinogen (<2.0) mg/dL Ur Leukocyte Esterase (Negative) Urine RBC (0-5) /hpf Urine WBC (0-5) /hpf Ur Squamous Epith Cells (0-4) /hpf Urine Bacteria (None) /hpf Urine Mucus (None) /hpf Urine HCG, Qual (Not Detectd) Coronavirus (PCR) Not Detected (Not Detectd) Influenza Type A RNA Not Detected (Not Detectd) Influenza Type B (PCR) Not Detected (Not Detectd) Disposition Clinical Impression: Palpitations, Paresthesia Disposition: HOME SELF-CARE Condition: Good Instructions (If sedation given, give patient instructions): Heart Palpitations (ED), Paresthesia (ED) Additional Instructions: Follow-up with PCP and cardiology. Report back to ER with any new or worsening symptoms. Take medication as prescribed. Prescriptions: methylPREDNISolone Dose Pack [Medrol Dose Pack] 4 mg PO DIRECTED #1 packet Is patient prescribed a controlled substance at d/c from ED?: No Referrals: Raghu Clemens MD [Primary Care Provider] - 1-2 days [facility] [Provider Group] - 1-2 days Time of Disposition: 13:49
[2022-07-12 14:40] VITALS: BP 114/57; PULSE 93; TEMP 97.9
== END 2022-07-12 14:40 | disposition home or self-care (01) ==
LOC: EC 11:21
DX: R00.2 Palpitations (principal); R20.2 Paresthesia of skin; F12.90 Cannabis use, unspecified, uncomplicated; Z88.0 Allergy status to penicillin; Z88.5 Allergy status to narcotic agent; Z79.899 Other long term (current) drug therapy; Z20.822 Contact with and (suspected) exposure to COVID-19
CPT/HCPCS: 36415; 71046; 80053; 81001; 81025; 82024; 82533; 83735; 84100; 84484; 85025; 85379; 85610; 85730; 87502; 87635; 93005; 96360; 99285

== ENCOUNTER → 2023-02-17 | Outpatient (CLI) | payer OTHER ==
[2023-02-17 14:23] LABS: Basophils # (A) 0.03 X 10*3/uL (0.00-0.10); Basophils % (A) 0.4 %; Eosinophils # (A) 0.35 X 10*3/uL (0.04-0.35); Eosinophils % (A) 4.4 %; HCT 37.1 % (37.2-46.3); HGB 12.2 g/dL (12.0-15.0); Immature Grans, Automated 0.3 %; Lymphocytes # (A) 1.94 X 10*3/uL (0.90-5.00); Lymphocytes % (A) 24.5 %; MCH 29.5 pg (27.0-32.0); MCHC 32.9 g/dL (32.0-37.0); MCV 89.6 fL (80.0-97.0); Mean Platelet Volume 10.4 fL (9.5-12.2); Monocytes # (A) 0.44 X 10*3/uL (0.20-1.00); Monocytes % (A) 5.5 %; NRBC Per 100 WBC 0 /100 WBCS (0.0-0.0); Neutrophils # (A) 5.15 X 10*3/uL (1.80-7.70); Neutrophils % (A) 64.9 %; Platelet Count 299 X 10*3/uL (140-440); RBC 4.14 X 10*6/uL (4.10-5.20); RDW 12.5 % (11.5-14.5); WBC 7.93 X 10*3/uL (4.50-10.00)
[2023-02-17 14:59] LABS: % Iron Saturation 19.01 (12.00-45.00); T4, Free (Free Thyroxine) 1.19 ng/dL (0.800-1.800)
[2023-02-17 15:03] LABS: Hepatitis B Surface Antigen Nonreactive (Nonreactive); Hepatitis C IgG Antibody Nonreactive (Nonreactive)
[2023-02-17 17:01] LABS: HIV 2 AB Non-Reactive (Non-Reactive); HIV AB P24 Non-Reactive (Non-Reactive); HIV P24 AG Non-Reactive (Non-Reactive)
[2023-02-18 06:08] LABS: Toxoplasma Antibody (IgG) <3.0 IU/mL (<7.2); Toxoplasma Antibody (IgM) <3.0 AU/mL (<8.0)
== END | disposition home or self-care (01) ==
LOC: LABWHC1 09:12
PROVIDERS: ATTEND Obstetrics & Gynecology
DX: Z36.89 Encounter for other specified antenatal screening (principal)
CPT/HCPCS: 36415; 82306; 82947; 83540; 83550; 84439; 84443; 85025; 86762; 86777; 86778; 86803; 87340; 87390

== ENCOUNTER → 2023-06-07 | Outpatient (CLI) | payer OTHER ==
[2023-06-07 16:58] LABS: % Iron Saturation 9.61 (12.00-45.00); Ferritin 7.7 ng/mL (10.0-291.0)
[2023-06-07 17:13] LABS: Basophils # (A) 0.02 X 10*3/uL (0.00-0.10); Basophils % (A) 0.2 %; Eosinophils # (A) 0.22 X 10*3/uL (0.04-0.35); HCT 32.9 % (37.2-46.3); Lymphocytes # (A) 1.79 X 10*3/uL (0.90-5.00); Lymphocytes % (A) 16.6 %; MCH 28.7 pg (27.0-32.0); MCHC 33.4 d/dL (32.0-37.0); MCV 85.9 FL (80.0-97.0); Mean Platelet Volume 11.1 FL (9.5-12.2); Monocytes # (A) 0.44 X 10*3/uL (0.20-1.00); Monocytes % (A) 4.1 %; NRBC Per 100 WBC 0 X 10*3/uL (0.00-0.01); Neutrophils # (A) 8.26 X 10*3/uL (1.80-7.70); Neutrophils % (A) 76.5 %; Platelet Count 281 X 10*3/uL (140-440); RBC 3.83 X 10*6/uL (4.10-5.20); RDW 13.8 % (11.5-14.5); WBC 10.79 X 10*3/uL (4.50-10.00)
[2023-06-07 19:11] LABS: HIV 2 AB Non-Reactive (Non-Reactive); HIV AB P24 Non-Reactive (Non-Reactive); HIV P24 AG Non-Reactive (Non-Reactive)
== END | disposition home or self-care (01) ==
LOC: LABWHC1 11:44
PROVIDERS: ATTEND Obstetrics & Gynecology
DX: Z36.89 Encounter for other specified antenatal screening (principal)
CPT/HCPCS: 36415; 82728; 82950; 83540; 83550; 85025; 86780; 87340; 87390